=== PATIENT | female | born 1975 | race Caucasian/White ===

== ENCOUNTER 2016-10-30 13:39 | Emergency (ER) | payer MEDICAID, OTHER ==
[~2016-10-30] VITALS: Ht 162.6 cm; Wt 128.0 kg
[~2016-10-30 13:39] MED LIST: CEPH500T PO
[2016-10-30 13:42] VITALS: BP 124/80; PULSE 100; RESP 16; TEMP 98.4; O2SAT 100
[2016-10-30 13:58] VITALS: O2SAT 98
[2016-10-30] MEDS ORDERED: methylPREDNISolone SOD SUCC 125 MG/2 ML VIAL IVP ONE (14:00)
[2016-10-30] MEDS ORDERED: RESP: LIDOCAINE HCL 4% PF 5 ML NEB NEB ONE (14:00)
[2016-10-30] MEDS ORDERED: SODIUM CHLORIDE 0.9% FLUSH 10 ML FLUSH IVF PRN (14:00)
--- NOTE | 2016-10-30 14:03 | PD ---
HPI Chief Complaint: Cold / Flu Symptoms Time Seen by Provider: 13:47 Travel History International Travel<30 days: No Contact w/Intl Traveler<30days: No Traveled to known affect area: No History of Present Illness HPI The patient is a 41-year-old female who presents to the emergency department for shortness of breath. The patient notes a 2 to three-day history of cough and cold symptoms with some bilateral ear pain and some congestion. However, the last 2 days she complains of increasing shortness of breath, pressure over the anterior aspect the chest, and pain located over the midthoracic region in the back bilaterally. The patient does note a dry nonproductive cough, is unsure if she is had any fever. The patient does have a history of bronchitis, does have a history of tobacco use, last smoked a cigarette one hour prior to arrival. The patient denies any history of recent surgery, recent hospitalizations, recent prolonged travel, or history of pulmonary embolism/DVT. The patient denies any known history of CAD or CHF. The patient's symptoms are moderate, worse when she lies supine, slightly alleviated with sitting upright and sleeping upright, with no history of similar symptoms. PFSH Past Medical History Hx Anticoagulant Therapy: Yes Arthritis: Yes Autoimmune Disease: No Cancer: No Cardiovascular Problems: No Diabetes: No Diminished Hearing: No Endocrine: Yes Gastrointestinal Disorders: Yes GERD: Yes Genitourinary: No Immune Disorder: No Implanted Vascular Access Dvce: No Musculoskeletal: Yes Neurologic: No Psychiatric: No Reproductive: No Respiratory: Yes (PNEUMONIA) Immunizations Current: Yes Thyroid Disease: Yes (slightly enlarged) ?: Not : 4 Para: 3 Miscarriage: 1 Past Surgical History Abdominal Surgery: Yes (rosemarie ) Cholecystectomy: Yes Ear Surgery: Yes (TUBES X 5) Tympanostomy Tube: Yes (X 5) Other Surgery: Yes Social History Alcohol Use: No Tobacco Use: Yes (1/2 PPD) Substance Use: No Allergies-Medications (Allergen,Severity, Reaction): Coded Allergies: Ranitidine (Verified Allergy, Severe, Hives, 10/30/16) Reported Meds & Prescriptions Reported Meds & Active Scripts Active Reported Lansoprazole 30 Mg Capdr 30 Mg PO DAILY Omeprazole 20 Mg Tab 20 Mg PO DAILY Review of Systems Except as stated in HPI: all other systems reviewed are Neg General / Constitutional: No: Fever HENT: Positive: Congestion Cardiovascular: Positive: Other, No: Chest Pain or Discomfort Respiratory: Positive: Cough, Shortness of Breath Gastrointestinal: No: Nausea, Vomiting, Abdominal Pain Musculoskeletal: No: Edema Physical Exam Narrative GENERAL: Awake, alert, pleasant 41-year-old female who appears her stated age and is in no obvious respiratory distress. SKIN: Focused skin assessment warm/dry. HEAD: Atraumatic. Normocephalic. EYES: Pupils equal and round. No scleral icterus. No injection or drainage. ENT: No nasal bleeding or discharge. Mucous membranes pink and moist. Oropharynx reveals cobblestoning but no exudate. TMs bilateral have scarring from prior tube placement but no erythema or bulging. EACs are clear. NECK: Trachea midline. No JVD. CARDIOVASCULAR: Regular rate and rhythm. No murmur appreciated. Heart rate in the 90s. RESPIRATORY: No accessory muscle use. Slightly diminished in the bases. GASTROINTESTINAL: Abdomen soft, non-tender, nondistended. Obese. MUSCULOSKELETAL: No obvious deformities. No clubbing. No cyanosis. No edema. NEUROLOGICAL: Awake and alert. No obvious cranial nerve deficits. Motor grossly within normal limits. Normal speech. PSYCHIATRIC: Appropriate mood and affect; insight and judgment normal. Data Data Last Documented VS Vital Signs Date Time Temp Pulse Resp B/P Pulse Ox O2 Delivery O2 Flow Rate FiO2 10/30/16 14:09 98 Room Air 10/30/16 13:42 98.4 100 16 124/80 Orders Complete Blood Count With Diff (10/30/16 13:55) Comprehensive Metabolic Panel (10/30/16 13:55) B-Type Natriuretic Peptide (10/30/16 13:55) D-Dimer (10/30/16 13:55) Act Partial Throm Time (Ptt) (10/30/16 13:55) Prothrombin Time / Inr (Pt) (10/30/16 13:55) Magnesium (Mg) (10/30/16 13:55) Ckmb (Isoenzyme) Profile (10/30/16 13:55) Troponin I (10/30/16 13:55) Iv Access Insert/Monitor (10/30/16 13:55) Electrocardiogram (10/30/16 13:55) Ecg Monitoring (10/30/16 13:55) Oximetry (10/30/16 13:55) Oxygen Administration (10/30/16 13:55) Chest, Single Ap (10/30/16 13:55) Sodium Chloride 0.9% Flush (Ns Flush) (10/30/16 14:00) Methylprednisolone So Succ Inj (Solumedr (10/30/16 14:00) Albuterol-Ipratropium Neb (Duoneb Neb) (10/30/16 14:00) Lidocaine Pf 4% Neb (Lidocaine Pf 4% Neb (10/30/16 14:00) Ct Pulmonary Angiogram (10/30/16 ) Iohexol 350 Inj (Omnipaque 350 Inj) (10/30/16 16:12) Labs Laboratory Tests Test 10/30/16 14:30 White Blood Count 9.1 TH/MM3 Red Blood Count 4.47 MIL/MM3 Hemoglobin 13.9 GM/DL Hematocrit 41.0 % Mean Corpuscular Volume 91.9 FL Mean Corpuscular Hemoglobin 31.2 PG Mean Corpuscular Hemoglobin 34.0 % Concent Red Cell Distribution Width 12.9 % Platelet Count 331 TH/MM3 Mean Platelet Volume 6.8 FL Neutrophils (%) (Auto) 55.0 % Lymphocytes (%) (Auto) 36.1 % Monocytes (%) (Auto) 6.0 % Eosinophils (%) (Auto) 2.0 % Basophils (%) (Auto) 0.9 % Neutrophils # (Auto) 5.0 TH/MM3 Lymphocytes # (Auto) 3.3 TH/MM3 Monocytes # (Auto) 0.5 TH/MM3 Eosinophils # (Auto) 0.2 TH/MM3 Basophils # (Auto) 0.1 TH/MM3 CBC Comment DIFF FINAL Differential Comment Prothrombin Time 10.5 SEC Prothromb Time International 1.0 RATIO Ratio Activated Partial 27.0 SEC Thromboplast Time D-Dimer Quantitative (PE/DVT) 0.69 MG/L FEU Sodium Level 143 MEQ/L Potassium Level 3.9 MEQ/L Chloride Level 107 MEQ/L Carbon Dioxide Level 24.3 MEQ/L Anion Gap 12 MEQ/L Blood Urea Nitrogen 10 MG/DL Creatinine 0.82 MG/DL Estimat Glomerular Filtration 76 ML/MIN Rate Random Glucose 119 MG/DL Calcium Level 8.6 MG/DL Magnesium Level 2.0 MG/DL Total Bilirubin 0.2 MG/DL Aspartate Amino Transf 13 U/L (AST/SGOT) Alanine Aminotransferase 27 U/L (ALT/SGPT) Alkaline Phosphatase 72 U/L Total Creatine Kinase 30 U/L Troponin I LESS THAN 0.02 NG/ML B-Type Natriuretic Peptide 35 PG/ML Total Protein 6.8 GM/DL Albumin 3.5 GM/DL MDM Medical Decision Making Medical Screen Exam Complete: Yes Emergency Medical Condition: Yes Medical Record Reviewed: Yes Interpretation(s) EKG reveals normal sinus rhythm with a rate 82. Poor R-wave progression. No ischemic changes or ectopy noted. Last Impressions Chest X-Ray 10/30/16 0995 Signed Impressions: Service Date/Time: Sunday, October 30, 2016 14:16 - CONCLUSION: No acute cardiopulmonary disease. Gloria Edge MD Laboratory Tests Test 10/30/16 14:30 White Blood Count 9.1 TH/MM3 Red Blood Count 4.47 MIL/MM3 Hemoglobin 13.9 GM/DL Hematocrit 41.0 % Mean Corpuscular Volume 91.9 FL Mean Corpuscular Hemoglobin 31.2 PG Mean Corpuscular Hemoglobin 34.0 % Concent Red Cell Distribution Width 12.9 % Platelet Count 331 TH/MM3 Mean Platelet Volume 6.8 FL Neutrophils (%) (Auto) 55.0 % Lymphocytes (%) (Auto) 36.1 % Monocytes (%) (Auto) 6.0 % Eosinophils (%) (Auto) 2.0 % Basophils (%) (Auto) 0.9 % Neutrophils # (Auto) 5.0 TH/MM3 Lymphocytes # (Auto) 3.3 TH/MM3 Monocytes # (Auto) 0.5 TH/MM3 Eosinophils # (Auto) 0.2 TH/MM3 Basophils # (Auto) 0.1 TH/MM3 CBC Comment DIFF FINAL Differential Comment Prothrombin Time 10.5 SEC Prothromb Time International 1.0 RATIO Ratio Activated Partial 27.0 SEC Thromboplast Time D-Dimer Quantitative (PE/DVT) 0.69 MG/L FEU Sodium Level 143 MEQ/L Potassium Level 3.9 MEQ/L Chloride Level 107 MEQ/L Carbon Dioxide Level 24.3 MEQ/L Anion Gap 12 MEQ/L Blood Urea Nitrogen 10 MG/DL Creatinine 0.82 MG/DL Estimat Glomerular Filtration 76 ML/MIN Rate Random Glucose 119 MG/DL Calcium Level 8.6 MG/DL Magnesium Level 2.0 MG/DL Total Bilirubin 0.2 MG/DL Aspartate Amino Transf 13 U/L (AST/SGOT) Alanine Aminotransferase 27 U/L (ALT/SGPT) Alkaline Phosphatase 72 U/L Total Creatine Kinase 30 U/L Troponin I LESS THAN 0.02 NG/ML B-Type Natriuretic Peptide 35 PG/ML Total Protein 6.8 GM/DL Albumin 3.5 GM/DL Differential Diagnosis Differential diagnosis includes bronchitis, URI, pneumonia, congestive heart failure, cardiomyopathy, pleural effusion, pulmonary embolism. Narrative Course IV was established, labs are drawn and sent, and the patient was placed on cardiac telemetry monitoring and continuous pulse oximetry monitoring. EKG was ordered and interpreted. D-dimer was sent to lab. Chest x-ray was obtained. The patient was administered Solu-Medrol, duo nebs 3, and respiratory lidocaine. Chest x-ray was unremarkable. Troponin and BNP are unremarkable. However, d-dimer was positive, therefore, CT pulmonary angiogram was ordered. CT pulmonary angiogram was negative. The patient was reevaluated, her symptoms didn't improve after breathing treatments. The patient will be discharged home on prednisone, albuterol inhaler, Zithromax. She is advised to follow-up with her primary physician. Return if symptoms worsen or progress. Procedures Procedure Narrative Nursing staff was unable to establish IV access. Therefore, I placed a 20-gauge , 1.88 inch ultrasound-guided IV in the right upper extremity using a linear probe. Blood was able to be drawn from the IV without difficulty and the IV flowed easily. There is no obvious contraindications. The patient tolerated the procedure without difficulty. Diagnosis Primary Impression: Dyspnea Qualified Code: R06.00 - Dyspnea, unspecified type Additional Impression: Bronchitis Patient Instructions: General Instructions Additional Instructions: Medications as directed. Follow-up with your primary physician. Return if symptoms worsen or progress. Med/Other Pt SpecificInfo: Prescription(s) given Scripts Albuterol 18 GM Inh (Ventolin Hfa 18 GM Inh)90 Mcg/Act Aer2 Puff INH Q4H PRN ( SHORTNESS OF BREATH) #1 INHALER Ref 0 Prov:Geronimo Christie MD 10/30/16 Azithromycin (Zithromax Z-John)250 Mg Melr231 Mg PO DIRECTED #1 DSPK Ref 0 500 MG (2 tabs) day 1, then 1 tab days 2-5. Prov:Geronimo Christie MD 10/30/16 Prednisone (Deltasone)20 Mg Tab40 Mg PO DAILY 4 Days Ref 0 Prov:Geronimo Christie MD 10/30/16 Disposition: 01 DISCHARGE HOME Condition: Stable Geronimo Christie MD Oct 30, 2016 14:03
[2016-10-30] MEDS: RESP: ALBUTEROL 2.5 MG/IPRATROPIUM 0.5 MG NEB (SCH) INH (14:05)
[2016-10-30] MEDS ORDERED: OMEP20TA PO (14:12)
[2016-10-30] MEDS ORDERED: LANS30CA PO (14:12)
[2016-10-30 14:45] LABS: BASOPHIL # 0.1 TH/MM3 (0-0.2); BASOPHIL % 0.9 % (0.0-2.0); EOSINOPHIL # 0.2 TH/MM3 (0-0.4); HEMO FLAGS DIFF FINAL; LYMPH % 36.1 % (9.0-44.0); LYMPHOCYTE # 3.3 TH/MM3 (1.0-4.8); MEAN CELL VOLUME 91.9 FL (80.0-100.0); MEAN CORPUSCULAR HEMOGLOBIN 31.2 PG (27.0-34.0); PLATELET COUNT 331 TH/MM3 (150-450); RED BLOOD COUNT 4.47 MIL/MM3 (4.00-5.30); RED CELL DISTRIBUTION WIDTH 12.9 % (11.6-17.2); WHITE BLOOD COUNT 9.1 TH/MM3 (4.0-11.0)
--- NOTE | 2016-10-30 14:50 | RADHPO ---
EXAM DATE/TIME: 10/30/2016 14:16 [facility] COMPARISON: CHEST SINGLE AP, June 07, 2015, 23:49. INDICATIONS : Short of breath. MEDICAL HISTORY : None. SURGICAL HISTORY : None. ENCOUNTER: Initial ACUITY: 1 day PAIN SCORE: 7/10 LOCATION: Bilateral chest FINDINGS: The lungs are clear without infiltrate, nodule, or mass. There is no appreciable pleural effusion fo r technique. Heart and mediastinum are unremarkable. CONCLUSION: No acute cardiopulmonary disease. Gloria Edge MD on October 30, 2016 at 14:48 Board Certified Radiologist. This report was verified electronically.
[2016-10-30 14:53] LABS: CHLORIDE 107 MEQ/L (98-107); POTASSIUM 3.9 MEQ/L (3.5-5.1); SODIUM (NA) 143 MEQ/L (136-145)
[2016-10-30 14:56] LABS: ANION GAP 12 MEQ/L (5-15); BICARBONATE 24.3 MEQ/L (21.0-32.0)
[2016-10-30 14:57] LABS: BLOOD UREA NITROGEN 10 MG/DL (7-18)
[2016-10-30 15:00] LABS: ALT (GPT) 27 U/L (10-53); AST (GOT) 13 U/L (15-37); GLOMERULAR FILTRATION RATE 76 ML/MIN (>89)
[2016-10-30 15:01] LABS: TOTAL BILIRUBIN ADULT 0.2 MG/DL (0.2-1.0)
[2016-10-30 15:02] LABS: ALKALINE PHOSPHATASE 72 U/L (45-117)
[2016-10-30 15:06] LABS: PROTHROMBIN TIME - PATIENT 10.5 SEC (9.8-11.6)
[2016-10-30 15:19] LABS: CREATINE KINASE 30 U/L (26-192)
[2016-10-30] MEDS ORDERED: IOHEXOL 350 MG/ML 10 ML VIAL (for RAD DIAG) IV ONE (16:12)
--- NOTE | 2016-10-30 16:23 | RADHPO ---
EXAM DATE/TIME: 10/30/2016 15:58 [facility] COMPARISON: No previous studies available for comparison. INDICATIONS : Short of breath with pleuritic chest pain. IV CONTRAST: 70 cc Omnipaque 350 (iohexol) IV RADIATION DOSE: 21.62 CTDIvol (mGy) MEDICAL HISTORY : Gastroesophageal reflux disease. Anticoagulant therapy. SURGICAL HISTORY : Cholecystectomy. ENCOUNTER: Initial ACUITY: 2 days PAIN SCALE: 3/10 LOCATION: chest TECHNIQUE: Volumetric scanning of the chest was performed using a pulmonary embolism protocol MIP images were re constructed. Using automated exposure control and adjustment of the mA and/or kV according to patien t size, radiation dose was kept as low as reasonably achievable to obtain optimal diagnostic quality images. FINDINGS: There is linear scarring in the lingula. No consolidation. No pleural or pericardial effusion. No hil ar, mediastinal or axillary adenopathy. No filling defects to suggest pulmonary embolic disease. No acute findings in the upper abdomen. Chol ecystectomy. CONCLUSION: 1. Negative for pulmonary embolus. No acute findings. Vinnie Love MD on October 30, 2016 at 16:17 Board Certified Radiologist. This report was verified electronically.
[2016-10-30] MEDS ORDERED: PRED-503 PO (16:29)
[2016-10-30] MEDS ORDERED: VENTAER INH (16:29)
[2016-10-30] MEDS ORDERED: ZITHTAB PO (16:29)
[2016-10-30 16:47] VITALS: BP 143/82; PULSE 84; RESP 18; O2SAT 100
--- NOTE | 2016-10-31 11:48 | EKG ---
Date Performed: 10/30/2016 Time Performed: 14:34:10 PTAGE: 41 years EKG: Sinus rhythm Poor R wave progression - probable normal variant Borderline ECG PREVIOUS TRACING : 06/08/2015 03.25 Compared to prior tracing no significant change DOCTOR: Reginald Palacios Interpretating Date/Time 10/31/2016 11:46:28
== END 2016-10-30 16:54 | disposition home or self-care (01) ==
LOC: PHED 13:39
DX: R06.00 Dyspnea, unspecified (principal); J40 Bronchitis, not specified as acute or chronic; R94.31 Abnormal electrocardiogram [ECG] [EKG]; F17.210 Nicotine dependence, cigarettes, uncomplicated; K21.9 Gastro-esophageal reflux disease without esophagitis; E07.9 Disorder of thyroid, unspecified; Z79.01 Long term (current) use of anticoagulants
CPT/HCPCS: 71010; 71275; 80053; 82550; 83735; 83880; 84484; 85025; 85379; 85610; 85730; 93005; 94640; 94664; 96374; 99285; J2930; Q9967

== ENCOUNTER 2017-01-13 13:57 | Emergency (ER) | payer MEDICAID ==
[~2017-01-13] VITALS: Ht 162.6 cm; Wt 130.6 kg
[~2017-01-13 13:57] MED LIST changes: -CEPH500T PO; +LANS30CA PO; +OMEP20TA PO; +PRED-503 PO; +VENTAER INH; +ZITHTAB PO
[2017-01-13 14:02] VITALS: BP 141/83; PULSE 86; RESP 16; TEMP 98.1; O2SAT 98
[2017-01-13] MEDS ORDERED: SODIUM CHLOR 0.9% 1000 ML INJ 1,000 ML IV SCH (14:12)
[2017-01-13] MEDS ORDERED: SODIUM CHLORIDE 0.9% FLUSH 10 ML FLUSH IV FLUSH PRN (14:15)
[2017-01-13] MEDS ORDERED: ONDANSETRON HCL 4 MG/2 ML VIAL IVP ONE (14:15)
[2017-01-13] MEDS ORDERED: MORPHINE SULFATE 4 MG/ML INJ IV PUSH ONE (14:15)
--- NOTE | 2017-01-13 14:21 | PD ---
HPI Chief Complaint: Abdominal Pain Time Seen by Provider: 14:05 Travel History International Travel<30 days: No Contact w/Intl Traveler<30days: No Traveled to known affect area: No History of Present Illness HPI The patient is a 41-year-old female who presents to the emergency department for abdominal pain with nausea. The patient states her abdominal pain has been present for 4 days, constant, located in the left mid abdomen to left lower quadrant, nonradiating, associated with nausea without any vomiting, and mild constipation with diarrhea. She denies any fever, has had some intermittent chills and sweats. She also complains of a mild headache secondary to her persistent abdominal pain. She does note a previous history of cholecystectomy, denies any history of previous diverticulitis. Her last menstrual cycle was 2 weeks ago, she denies . She denies any vaginal discharge, dysuria, frequency, urgency, or hematuria. Symptoms are moderate, there are no current alleviating or exacerbating factors. PFSH Past Medical History Hx Anticoagulant Therapy: Yes Arthritis: Yes Autoimmune Disease: No Cancer: No Cardiovascular Problems: No Diabetes: No Diminished Hearing: No Endocrine: Yes Gastrointestinal Disorders: Yes GERD: Yes Genitourinary: No Herniated Disk: Yes Immune Disorder: No Implanted Vascular Access Dvce: No Medical other: Yes ([place]) Musculoskeletal: Yes (BACK PAIN) Neurologic: No Psychiatric: No Reproductive: No Respiratory: Yes (PNEUMONIA) Immunizations Current: Yes Thyroid Disease: Yes Influenza Vaccination: No ?: Not LMP: 01/01/17 : 4 Para: 3 Miscarriage: 1 Past Surgical History Abdominal Surgery: Yes (rosemarie ) Cholecystectomy: Yes Ear Surgery: Yes (TUBES X 5) Tympanostomy Tube: Yes (X 5) Other Surgery: Yes Social History Alcohol Use: No Tobacco Use: Yes (1 PPD) Substance Use: No Allergies-Medications (Allergen,Severity, Reaction): Coded Allergies: Ranitidine (Verified Allergy, Severe, Hives, 01/13/17) Reported Meds & Prescriptions Reported Meds & Active Scripts Active Reported Omeprazole 20 Mg Tab 20 Mg PO DAILY Review of Systems Except as stated in HPI: all other systems reviewed are Neg General / Constitutional: Positive: Chills, No: Fever Cardiovascular: No: Chest Pain or Discomfort Respiratory: No: Shortness of Breath Gastrointestinal: Positive: Nausea, Diarrhea, Abdominal Pain, Constipation, No : Vomiting Genitourinary: No: Urgency, Frequency, Dysuria, Discharge Physical Exam Narrative GENERAL: Awake, alert, very pleasant 41-year-old female who appears her stated age and is in no acute respiratory distress. SKIN: Focused skin assessment warm/dry. A few petechiae noted on the left hand. HEAD: Atraumatic. Normocephalic. EYES: No injection or drainage. ENT: No nasal bleeding or discharge. Mucous membranes pink and moist. NECK: Trachea midline. No JVD. CARDIOVASCULAR: Regular rate and rhythm. No murmur appreciated. RESPIRATORY: No accessory muscle use. Clear to auscultation. Breath sounds equal bilaterally. GASTROINTESTINAL: Abdomen soft, obese, mild tenderness in the left mid abdomen and left lower quadrant. No guarding or rigidity. MUSCULOSKELETAL: No obvious deformities. No clubbing. No cyanosis. No edema. NEUROLOGICAL: Awake and alert. No obvious cranial nerve deficits. Motor grossly within normal limits. Normal speech. PSYCHIATRIC: Appropriate mood and affect; insight and judgment normal. Data Data Last Documented VS Vital Signs Date Time Temp Pulse Resp B/P Pulse Ox O2 Delivery O2 Flow Rate FiO2 01/13/17 15:10 16 01/13/17 14:47 99 Room Air 01/13/17 14:02 98.1 86 141/83 Orders Complete Blood Count With Diff (01/13/17 14:12) Comprehensive Metabolic Panel (01/13/17 14:12) Lipase (01/13/17 14:12) Urinalysis - C+S If Indicated (01/13/17 14:12) Ct Abd/Pel W/O Iv Contrast (01/13/17 14:12) Iv Access Insert/Monitor (01/13/17 14:12) Ecg Monitoring (01/13/17 14:12) Oximetry (01/13/17 14:12) Ondansetron Inj (Zofran Inj) (01/13/17 14:15) Sodium Chlor 0.9% 1000 Ml Inj (Ns 1000 M (01/13/17 14:12) Sodium Chloride 0.9% Flush (Ns Flush) (01/13/17 14:15) Ed Urine Pregnancytest Poc (01/13/17 14:12) Morphine Inj (Morphine Inj) (01/13/17 14:45) Urine Culture (01/13/17 14:45) Labs Laboratory Tests Test 01/13/17 14:45 White Blood Count 9.3 TH/MM3 Red Blood Count 4.55 MIL/MM3 Hemoglobin 14.1 GM/DL Hematocrit 41.3 % Mean Corpuscular Volume 90.7 FL Mean Corpuscular Hemoglobin 31.0 PG Mean Corpuscular Hemoglobin 34.2 % Concent Red Cell Distribution Width 12.5 % Platelet Count 309 TH/MM3 Mean Platelet Volume 6.5 FL Neutrophils (%) (Auto) 60.0 % Lymphocytes (%) (Auto) 29.2 % Monocytes (%) (Auto) 6.4 % Eosinophils (%) (Auto) 2.3 % Basophils (%) (Auto) 2.1 % Neutrophils # (Auto) 5.6 TH/MM3 Lymphocytes # (Auto) 2.7 TH/MM3 Monocytes # (Auto) 0.6 TH/MM3 Eosinophils # (Auto) 0.2 TH/MM3 Basophils # (Auto) 0.2 TH/MM3 CBC Comment DIFF FINAL Differential Comment Urine Collection Type CLEAN CATCH Urine Color YELLOW Urine Turbidity CLEAR Urine pH 6.0 Urine Specific [place] 1.007 Urine Protein NEG mg/dL Urine Glucose (UA) NEG mg/dL Urine Ketones NEG mg/dL Urine Occult Blood SMALL Urine Nitrite NEG Urine Bilirubin NEG Urine Leukocyte Esterase NEG Urine RBC 0-3 /hpf Urine WBC 6-8 /hpf Urine Squamous Epithelial 6-8 /hpf Cells Urine Bacteria MOD /hpf Microscopic Urinalysis Comment CULTURE INDICATED Sodium Level 141 MEQ/L Potassium Level 3.8 MEQ/L Chloride Level 107 MEQ/L Carbon Dioxide Level 25.0 MEQ/L Anion Gap 9 MEQ/L Blood Urea Nitrogen 11 MG/DL Creatinine 0.67 MG/DL Estimat Glomerular Filtration 97 ML/MIN Rate Random Glucose 107 MG/DL Calcium Level 8.9 MG/DL Total Bilirubin 0.2 MG/DL Aspartate Amino Transf 18 U/L (AST/SGOT) Alanine Aminotransferase 39 U/L (ALT/SGPT) Alkaline Phosphatase 73 U/L Total Protein 6.9 GM/DL Albumin 3.4 GM/DL Lipase 615 U/L [facility] Medical Decision Making Medical Screen Exam Complete: Yes Emergency Medical Condition: Yes Medical Record Reviewed: Yes Interpretation(s) Laboratory Tests Test 01/13/17 14:45 White Blood Count 9.3 TH/MM3 Red Blood Count 4.55 MIL/MM3 Hemoglobin 14.1 GM/DL Hematocrit 41.3 % Mean Corpuscular Volume 90.7 FL Mean Corpuscular Hemoglobin 31.0 PG Mean Corpuscular Hemoglobin 34.2 % Concent Red Cell Distribution Width 12.5 % Platelet Count 309 TH/MM3 Mean Platelet Volume 6.5 FL Neutrophils (%) (Auto) 60.0 % Lymphocytes (%) (Auto) 29.2 % Monocytes (%) (Auto) 6.4 % Eosinophils (%) (Auto) 2.3 % Basophils (%) (Auto) 2.1 % Neutrophils # (Auto) 5.6 TH/MM3 Lymphocytes # (Auto) 2.7 TH/MM3 Monocytes # (Auto) 0.6 TH/MM3 Eosinophils # (Auto) 0.2 TH/MM3 Basophils # (Auto) 0.2 TH/MM3 CBC Comment DIFF FINAL Differential Comment Urine Collection Type CLEAN CATCH Urine Color YELLOW Urine Turbidity CLEAR Urine pH 6.0 Urine Specific [place] 1.007 Urine Protein NEG mg/dL Urine Glucose (UA) NEG mg/dL Urine Ketones NEG mg/dL Urine Occult Blood SMALL Urine Nitrite NEG Urine Bilirubin NEG Urine Leukocyte Esterase NEG Urine RBC 0-3 /hpf Urine WBC 6-8 /hpf Urine Squamous Epithelial 6-8 /hpf Cells Urine Bacteria MOD /hpf Microscopic Urinalysis Comment CULTURE INDICATED Sodium Level 141 MEQ/L Potassium Level 3.8 MEQ/L Chloride Level 107 MEQ/L Carbon Dioxide Level 25.0 MEQ/L Anion Gap 9 MEQ/L Blood Urea Nitrogen 11 MG/DL Creatinine 0.67 MG/DL Estimat Glomerular Filtration 97 ML/MIN Rate Random Glucose 107 MG/DL Calcium Level 8.9 MG/DL Total Bilirubin 0.2 MG/DL Aspartate Amino Transf 18 U/L (AST/SGOT) Alanine Aminotransferase 39 U/L (ALT/SGPT) Alkaline Phosphatase 73 U/L Total Protein 6.9 GM/DL Albumin 3.4 GM/DL Lipase 615 U/L Differential Diagnosis Differential diagnosis includes diverticulitis, partial small bowel obstruction , nephrolithiasis, hydronephrosis, pyelonephritis, gastroenteritis, colitis. Narrative Course IV was established, labs are drawn and sent, and the patient was placed on cardiac telemetry monitoring and continuous pulse oximetry monitoring. The patient was administered morphine, Zofran, and IV fluids. UA was obtained and bedside UA was performed. CT of the abdomen and pelvis was ordered. UA test was negative. UA does reveal 6-8 WBCs, culture was sent to lab. The patient's lipase is mildly elevated at 615, LFTs are unremarkable. CT the abdomen and pelvis is negative. The patient will be treated for WBCs and her UA with lower abdominal pain, we'll treat with Bactrim. I will also place the patient on some antiemetics and pain medications for possible mild pancreatitis. The patient is stable for outpatient follow-up with her primary physician. Diagnosis Primary Impression: Abdominal pain Qualified Code: R10.30 - Lower abdominal pain Additional Impressions: UTI (urinary tract infection) Qualified Code: N39.0 - Urinary tract infection without hematuria, site unspecified Pancreatitis Qualified Code: K85.90 - Acute pancreatitis, unspecified complication status, unspecified pancreatitis type Patient Instructions: General Instructions Additional Instructions: Please provide the patient a copy of lab results and CT results at discharge. Medications as directed. Follow-up with your primary physician. Avoid fried or fatty foods for the next several days. Clear liquid diet and advance as tolerated. Return if symptoms worsen or progress. Med/Other Pt SpecificInfo: Prescription(s) given Scripts Hydrocodone-Acetaminophen ([place])5-325 mg Tab1 Tab PO Q6H PRN (PAIN) #15 TAB Ref 0 Prov:Geronimo Christie MD 01/13/17 Ondansetron Odt (Zofran Odt)4 Mg Tab4 Mg SL Q6HR PRN (Nausea/Vomiting) #10 TAB Ref 0 Prov:Geronimo Christie MD 01/13/17 Sulfamethoxazole-Trimethoprim (Bactrim DS)800-160 Mg Tab1 Tab PO BID #14 TAB Ref 0 Prov:Geronimo Christie MD 01/13/17 Disposition: 01 DISCHARGE HOME Condition: Stable Geronimo Christie MD Jan 13, 2017 14:21
[2017-01-13] MEDS ORDERED: MORPHINE SULFATE 8 MG/ML INJ IV PUSH ONE (14:45)
[2017-01-13 14:47] VITALS: RESP 16; O2SAT 99
[2017-01-13 14:50] LABS: AUTOMATED NEUTROPHIL # 5.6 TH/MM3 (1.8-7.7); BASOPHIL # 0.2 TH/MM3 (0-0.2); BASOPHIL % 2.1 % (0.0-2.0); EOSINOPHIL # 0.2 TH/MM3 (0-0.4); EOSINOPHIL % 2.3 % (0.0-4.0); HEMATOCRIT 41.3 % (35.0-46.0); HEMO FLAGS DIFF FINAL; LYMPH % 29.2 % (9.0-44.0); LYMPHOCYTE # 2.7 TH/MM3 (1.0-4.8); MEAN CELL VOLUME 90.7 FL (80.0-100.0); MEAN CORPUSCULAR HGB CONC 34.2 % (32.0-36.0); MONO % 6.4 % (0.0-8.0); PLATELET COUNT 309 TH/MM3 (150-450); RED BLOOD COUNT 4.55 MIL/MM3 (4.00-5.30); RED CELL DISTRIBUTION WIDTH 12.5 % (11.6-17.2); WHITE BLOOD COUNT 9.3 TH/MM3 (4.0-11.0)
[2017-01-13 14:52] LABS: BLOOD, URINE SMALL (NEG); GLUCOSE,URINE NEG (NEG); KETONE, URINE NEG (NEG); NITRITE,URINE NEG (NEG)
[2017-01-13 14:53] LABS: METHOD OF COLLECTION CLEAN CATCH; URINE COLOR YELLOW (YELLW/STRAW)
[2017-01-13 15:03] LABS: BACTERIA, URINE MOD /hpf; COMMENT (UR) CULTURE INDICATED; CULTURE IF INDICATED CULTURE INDICATED; RBC, URINE 0-3 /hpf (0-3)
[2017-01-13 15:05] LABS: CHLORIDE 107 MEQ/L (98-107); POTASSIUM 3.8 MEQ/L (3.5-5.1); SODIUM (NA) 141 MEQ/L (136-145)
[2017-01-13 15:08] LABS: ANION GAP 9 MEQ/L (5-15)
[2017-01-13 15:09] LABS: BLOOD UREA NITROGEN 11 MG/DL (7-18)
[2017-01-13 15:10] VITALS: RESP 16
[2017-01-13 15:11] LABS: ALT (GPT) 39 U/L (10-53); AST (GOT) 18 U/L (15-37)
[2017-01-13 15:12] LABS: GLOMERULAR FILTRATION RATE 97 ML/MIN (>89)
[2017-01-13 15:13] LABS: TOTAL BILIRUBIN ADULT 0.2 MG/DL (0.2-1.0)
[2017-01-13 15:14] LABS: ALKALINE PHOSPHATASE 73 U/L (45-117)
--- NOTE | 2017-01-13 15:34 | RADRPT ---
EXAM DATE/TIME: 01/13/2017 14:50 [facility] COMPARISON: No previous studies available for comparison. INDICATIONS : Abdominal pain. Evaluate for diverticulitis. ORAL CONTRAST: No oral contrast ingested. RADIATION DOSE: 22.34 CTDIvol (mGy) MEDICAL HISTORY : Gastroesophageal reflux disease. SURGICAL HISTORY : Cholecystectomy. ENCOUNTER: Initial ACUITY: 1 day PAIN SCALE: 3/10 LOCATION: Bilateral lower quadrant TECHNIQUE: Volumetric scanning of the abdomen and pelvis was performed. Using automated exposure control and ad justment of the mA and/or kV according to patient size, radiation dose was kept as low as reasonably achievable to obtain optimal diagnostic quality images. DICOM format image data is available electro nically for review and comparison. FINDINGS: The lung base are clear. There is no pericardial effusion. Moderate fatty replacement is present in the liver. The gallbladder is surgically absent. The splee n, pancreas, adrenals and kidneys are unremarkable. In the pelvis there is no intra-diverticulitis. I do not see inflammatory changes in the abdomen. I do not see an etiology of patient's abdominal pa in. Review of bone windows reveals only degenerative changes. CONCLUSION: Negative for inflammatory process.. Darrel Frances MD FACR on January 13, 2017 at 15:29 Board Certified Radiologist. This report was verified electronically.
[2017-01-13] MEDS ORDERED: BACT800T5 PO (15:45)
[2017-01-13] MEDS ORDERED: NORC5TAB PO (15:45)
[2017-01-13] MEDS ORDERED: ZOFR4TAB3 SL (15:45)
[2017-01-13 16:31] VITALS: BP 114/67
== END 2017-01-13 16:32 | disposition home or self-care (01) ==
LOC: PHED 13:57
DX: N39.0 Urinary tract infection, site not specified (principal); K85.90 Acute pancreatitis without necrosis or infection, unspecified; Z79.01 Long term (current) use of anticoagulants; M19.90 Unspecified osteoarthritis, unspecified site; K21.9 Gastro-esophageal reflux disease without esophagitis; E24.9 Cushing's syndrome, unspecified; E07.9 Disorder of thyroid, unspecified; Z90.49 Acquired absence of other specified parts of digestive tract
CPT/HCPCS: 74176; 80053; 81001; 83690; 84703; 85025; 87086; 96361; 96374; 96375; 99285; J2270; J2405; J7030

== ENCOUNTER 2017-04-30 19:42 | Emergency (ER) | payer MEDICAID ==
[~2017-04-30] VITALS: Ht 162.6 cm; Wt 134.5 kg
[~2017-04-30 19:42] MED LIST changes: +BACT800T5 PO; -LANS30CA PO; +NORC5TAB PO; -PRED-503 PO; -VENTAER INH; -ZITHTAB PO; +ZOFR4TAB3 SL
[2017-04-30 19:45] VITALS: BP 123/83; PULSE 96; RESP 20; TEMP 98.6; O2SAT 99
--- NOTE | 2017-04-30 20:36 | PD ---
HPI Chief Complaint: Respiratory Symptoms Time Seen by Provider: 20:21 Travel History International Travel<30 days: No Contact w/Intl Traveler<30days: No Traveled to known affect area: No History of Present Illness HPI The patient is a 41-year-old female that has multiple complaints. She has a cough which is nonproductive for 3 days. She states she feels retrosternal congestion. She also has chronic back pain which is a Workmen's Comp. case. She also has reflux esophagitis. She does not have a primary care physician and did have a sign writer hand for GERD but no longer has a sign writer hand. She smokes three fourths pack is a. She also complains of myalgias with the cough in her shoulders and back. She denies any fever or shortness of breath. She states that there is no possibility of , she is not sexually active. She denies any dysuria, frequency or urgency. She has a fairly frequent visitor to the emergency department. She has had a cholecystectomy in 2001. On her last visit, 4 months ago, she had an elevated lipase. She states she does not drink alcohol. PFSH Past Medical History Hx Anticoagulant Therapy: Yes Arthritis: Yes Autoimmune Disease: No Cancer: No Cardiovascular Problems: No Diabetes: No Diminished Hearing: No Endocrine: Yes Gastrointestinal Disorders: Yes GERD: Yes Genitourinary: No Herniated Disk: Yes Immune Disorder: No Implanted Vascular Access Dvce: No Musculoskeletal: Yes (BACK PAIN) Neurologic: No Psychiatric: No Reproductive: No Respiratory: Yes (PNEUMONIA) Immunizations Current: Yes Thyroid Disease: Yes ?: Not LMP: 10-7-17 : 4 Para: 3 Miscarriage: 1 Past Surgical History Abdominal Surgery: Yes (rosemarie ) Cholecystectomy: Yes Ear Surgery: Yes (TUBES X 5) Tympanostomy Tube: Yes (X 5) Other Surgery: Yes Social History Alcohol Use: No Tobacco Use: Yes (1 PPD) Substance Use: No Allergies-Medications (Allergen,Severity, Reaction): Coded Allergies: ranitidine (Unverified Allergy, Severe, Hives, 04/30/17) Reported Meds & Prescriptions Reported Meds & Active Scripts Active Flexeril (Cyclobenzaprine HCl) 10 Mg Tab 10 Mg PO TID [place] (Hydrocodone-Acetaminophen) 5-325 mg Tab 1 Tab PO Q6H PRN Omeprazole 20 Mg Tab 20 Mg PO BID NEB Reported Omeprazole 20 Mg Tab 20 Mg PO DAILY Review of Systems Except as stated in HPI: all other systems reviewed are Neg Physical Exam Narrative GENERAL: The patient is alert, oriented 3, obese, in no respiratory distress. Her vital signs are normal and oximetry is 99% on room air. SKIN: Focused skin assessment warm/dry. No skin rash is noted. HEAD: Atraumatic. Normocephalic. EYES: Pupils equal and round. No scleral icterus. No injection or drainage. ENT: No nasal bleeding or discharge. Mucous membranes pink and moist. NECK: Trachea midline. No JVD. CARDIOVASCULAR: Regular rate and rhythm. No murmur appreciated. RESPIRATORY: No accessory muscle use. Clear to auscultation. Breath sounds equal bilaterally. GASTROINTESTINAL: Abdomen soft, non-tender, nondistended. Hepatic and splenic margins not palpable. No guarding or rebound is present. MUSCULOSKELETAL: No obvious deformities. No clubbing. No cyanosis. No edema. NEUROLOGICAL: Awake and alert. No obvious cranial nerve deficits. Motor grossly within normal limits. Normal speech. PSYCHIATRIC: Appropriate mood and affect; insight and judgment normal. Data Data Last Documented VS Vital Signs Date Time Temp Pulse Resp B/P (MAP) Pulse Ox O2 Delivery O2 Flow Rate FiO2 04/30/17 20:14 93 16 99 04/30/17 19:45 98.6 123/83 (96) Orders Orders Chest, Pa & Lat (04/30/17 20:36) Beta Hcg (Quant/Titer) (04/30/17 20:45) Complete Blood Count With Diff (04/30/17 20:45) Comprehensive Metabolic Panel (04/30/17 20:45) Lipase (04/30/17 20:45) Urinalysis - C+S If Indicated (04/30/17 20:45) Iv Access Insert/Monitor (04/30/17 20:45) Ecg Monitoring (04/30/17 20:45) Oximetry (04/30/17 20:45) Sodium Chloride 0.9% Flush (Ns Flush) (04/30/17 20:45) Sodium Chlor 0.9% 1000 Ml Inj (Ns 1000 M (04/30/17 22:30) Ketorolac Inj (Toradol Inj) (04/30/17 23:00) Orphenadrine Inj (Norflex Inj) (04/30/17 23:00) Labs Laboratory Tests Test 04/30/17 21:00 04/30/17 21:40 Urine Color YELLOW Urine Turbidity SLIGHT Urine pH 6.0 Urine Specific [place] 1.006 Urine Protein NEG mg/dL Urine Glucose (UA) NEG mg/dL Urine Ketones NEG mg/dL Urine Occult Blood TRACE Urine Nitrite NEG Urine Bilirubin NEG Urine Leukocyte Esterase NEG Urine RBC 4-9 /hpf Urine Squamous Epithelial Cells 0-5 /hpf Urine Bacteria FEW /hpf Microscopic Urinalysis Comment CULT NOT INDICATED Blood Urea Nitrogen 10 MG/DL Creatinine 0.73 MG/DL Random Glucose 83 MG/DL Total Protein 7.3 GM/DL Albumin 3.6 GM/DL Calcium Level 8.6 MG/DL Alkaline Phosphatase 71 U/L Aspartate Amino Transf (AST/SGOT) 26 U/L Alanine Aminotransferase (ALT/SGPT) 44 U/L Total Bilirubin 0.3 MG/DL Sodium Level 138 MEQ/L Potassium Level 4.2 MEQ/L Chloride Level 104 MEQ/L Carbon Dioxide Level 24.9 MEQ/L Anion Gap 9 MEQ/L Estimat Glomerular Filtration Rate 87 ML/MIN Lipase 469 U/L Human Chorionic Gonadotropin, Quant LESS THAN 1 MIU/ML White Blood Count 9.3 TH/MM3 Red Blood Count 4.46 MIL/MM3 Hemoglobin 13.9 GM/DL Hematocrit 41.5 % Mean Corpuscular Volume 93.0 FL Mean Corpuscular Hemoglobin 31.3 PG Mean Corpuscular Hemoglobin Concent 33.6 % Red Cell Distribution Width 13.5 % Platelet Count 320 TH/MM3 Mean Platelet Volume 6.8 FL Neutrophils (%) (Auto) 54.5 % Lymphocytes (%) (Auto) 36.6 % Monocytes (%) (Auto) 5.5 % Eosinophils (%) (Auto) 2.3 % Basophils (%) (Auto) 1.1 % Neutrophils # (Auto) 5.1 TH/MM3 Lymphocytes # (Auto) 3.4 TH/MM3 Monocytes # (Auto) 0.5 TH/MM3 Eosinophils # (Auto) 0.2 TH/MM3 Basophils # (Auto) 0.1 TH/MM3 CBC Comment DIFF FINAL Differential Comment MDM Medical Decision Making Medical Screen Exam Complete: Yes Emergency Medical Condition: Yes Medical Record Reviewed: Yes Interpretation(s) The chest x-ray is normal and the blood work is unremarkable except for a lipase slightly over 400. Differential Diagnosis Viral upper respiratory infection, bronchitis, pneumonia, GERD, chronic back pain, pancreatitis, Impressions: Viral upper respiratory infection, resolving viral pancreatitis Narrative Course The lipase is 469. This is down from the 615 lipase back in December of this year. The patient has some abdominal pain which radiates to the back and this conceivably could be either back pain-musculoskeletal pain or pancreatic pain. It could also be a combination of both. Nevertheless, the patient is not vomiting. I did call [facility] and they told me that she did not fit the criteria for 23 hour observation. She does not have intractable vomiting and her abdominal pain did not require IV narcotic pain medications. Impression: Viral syndrome, resolving viral pancreatitis Diagnosis Primary Impression: Viral syndrome Additional Impression: Pancreatitis, chronic Additional Instructions: In the first 48 hours try to avoid any fatty foods. As we discussed, clear liquids first to hydrate herself and then you can move into crackers, fruit juices, Jell-O, applesauce and foods that contain no fat. Follow-up with your primary care physician and try to get a gastroenterology appointment. Do not drink alcohol or drive on the [place] or Flexeril. Med/Other Pt SpecificInfo: Prescription(s) given Scripts Cyclobenzaprine (Flexeril) 10 Mg Tab 10 MG PO TID for Muscle Spasm, #60 TAB 0 Refills Prov: Vince Melton MD 04/30/17 Hydrocodone-Acetaminophen ([place]) 5-325 mg Tab 1 TAB PO Q6H Y for PAIN, #15 TAB 0 Refills Prov: Vince Melton MD 04/30/17 Omeprazole (Omeprazole) 20 Mg Tab 20 MG PO BID NEB, #40 TAB 0 Refills Prov: Vince Melton MD 04/30/17 Vince Melton MD Apr 30, 2017 20:35
[2017-04-30] MEDS ORDERED: SODIUM CHLORIDE 0.9% FLUSH 10 ML FLUSH IV FLUSH PRN (20:45)
[2017-04-30 21:24] LABS: CHLORIDE 104 MEQ/L (98-107); POTASSIUM 4.2 MEQ/L (3.5-5.1); SODIUM (NA) 138 MEQ/L (136-145)
[2017-04-30 21:29] LABS: ANION GAP 9 MEQ/L (5-15); BICARBONATE 24.9 MEQ/L (21.0-32.0); BLOOD UREA NITROGEN 10 MG/DL (7-18)
[2017-04-30 21:31] LABS: AST (GOT) 26 U/L (15-37)
[2017-04-30 21:32] LABS: ALT (GPT) 44 U/L (10-53); GLOMERULAR FILTRATION RATE 87 ML/MIN (>89)
[2017-04-30 21:33] LABS: TOTAL BILIRUBIN ADULT 0.3 MG/DL (0.2-1.0)
[2017-04-30 21:34] LABS: ALKALINE PHOSPHATASE 71 U/L (45-117); BETA HCG QUANT LESS THAN 1 MIU/ML (0-5)
--- NOTE | 2017-04-30 21:39 | RADRPT ---
EXAM DATE/TIME: 04/30/2017 21:10 [facility] COMPARISON: CHEST PA & LAT, March 05, 2015, 17:28. INDICATIONS : Cough. Congestion. Back pain. MEDICAL HISTORY : None. SURGICAL HISTORY : None. ENCOUNTER: Initial ACUITY: 1 day PAIN SCORE: 6/10 LOCATION: Bilateral chest FINDINGS: PA and lateral views of the chest demonstrate linear airspace disease in both bases characteristic of atelectasis. There is no significant consolidation. There are no suspicious nodular densities or eff usions. The cardiomediastinal contours are unremarkable. Osseous structures are intact. CONCLUSION: Bilateral atelectasis. No other evidence of acute process. Usama Green MD on April 30, 2017 at 21:36 Board Certified Radiologist. This report was verified electronically.
[2017-04-30 21:52] LABS: AUTOMATED NEUTROPHIL # 5.1 TH/MM3 (1.8-7.7); BASOPHIL # 0.1 TH/MM3 (0-0.2); BASOPHIL % 1.1 % (0.0-2.0); EOSINOPHIL # 0.2 TH/MM3 (0-0.4); EOSINOPHIL % 2.3 % (0.0-4.0); HEMATOCRIT 41.5 % (35.0-46.0); LYMPH % 36.6 % (9.0-44.0); LYMPHOCYTE # 3.4 TH/MM3 (1.0-4.8); MEAN CORPUSCULAR HEMOGLOBIN 31.3 PG (27.0-34.0); MEAN CORPUSCULAR HGB CONC 33.6 % (32.0-36.0); MONO % 5.5 % (0.0-8.0); NEUT % 54.5 % (16.0-70.0); PLATELET COUNT 320 TH/MM3 (150-450); RED BLOOD COUNT 4.46 MIL/MM3 (4.00-5.30); RED CELL DISTRIBUTION WIDTH 13.5 % (11.6-17.2); WHITE BLOOD COUNT 9.3 TH/MM3 (4.0-11.0)
[2017-04-30 21:56] LABS: HEMO FLAGS DIFF FINAL
[2017-04-30 22:30] VITALS: BP 156/88; PULSE 89; RESP 16; O2SAT 98
[2017-04-30] MEDS ORDERED: SODIUM CHLOR 0.9% 1000 ML INJ 1,000 ML IV SCH (22:30)
[2017-04-30 22:49] LABS: BLOOD, URINE TRACE (NEG); GLUCOSE,URINE NEG (NEG); KETONE, URINE NEG (NEG); NITRITE,URINE NEG (NEG)
[2017-04-30] MEDS ORDERED: OMEP20TA PO (22:49)
[2017-04-30] MEDS ORDERED: CYCL1TAB29 PO (22:49)
[2017-04-30] MEDS ORDERED: NORC5TAB PO (22:49)
[2017-04-30] MEDS ORDERED: KETOROLAC TROMETHAMINE 60 MG/2 ML (IM) VIAL IVP ONE (23:00)
[2017-04-30] MEDS ORDERED: ORPHENADRINE INJ 60 MG/2 ML AMP IM ONE (23:00)
[2017-04-30 23:02] LABS: URINE COLOR YELLOW (YELLW/STRAW)
[2017-04-30 23:05] LABS: BACTERIA, URINE FEW /hpf; COMMENT (UR) CULT NOT INDICATED; CULTURE IF INDICATED CULT NOT INDICATED; SQUAMOUS EPITHELIAL CELL URINE 0-5 /hpf (0-5)
[2017-05-01 00:10] VITALS: BP 162/78
== END 2017-05-01 00:16 | disposition home or self-care (01) ==
LOC: PHED 19:42
DX: R05 Cough (principal); K86.1 Other chronic pancreatitis; K21.0 Gastro-esophageal reflux disease with esophagitis; E07.9 Disorder of thyroid, unspecified; F17.200 Nicotine dependence, unspecified, uncomplicated; Z79.899 Other long term (current) drug therapy
CPT/HCPCS: 71020; 80053; 81001; 83690; 84702; 85025; 96361; 96372; 96374; 99284; J1885; J2360; J7030

== ENCOUNTER 2017-12-13 20:09 | Emergency (ER) | payer MEDICAID ==
[~2017-12-13] VITALS: Ht 162.6 cm; Wt 134.6 kg
[~2017-12-13 20:09] MED LIST changes: -BACT800T5 PO; +CYCL10TA PO; -OMEP20TA PO; +OMEP20TA93 PO; -ZOFR4TAB3 SL
[2017-12-13 20:39] VITALS: BP 118/59; PULSE 79; RESP 18; TEMP 98.5; O2SAT 100
[2017-12-13 21:17] VITALS: BP 110/74; PULSE 81; RESP 18; O2SAT 98
[2017-12-13] MEDS ORDERED: SODIUM CHLOR 0.9% 1000 ML INJ 1,000 ML IV ONE (21:22)
[2017-12-13] MEDS ORDERED: PROCHLORPERAZINE INJ 10 MG/2 ML VIAL IV PUSH ONE (21:30)
[2017-12-13] MEDS ORDERED: diphenhydrAMINE HCL 50 MG/ML VIAL IV PUSH ONE (21:30)
[2017-12-13] MEDS ORDERED: SODIUM CHLORIDE 0.9% FLUSH 10 ML FLUSH IVF PRN (21:30)
--- NOTE | 2017-12-13 21:38 | PD ---
HPI . Dizziness Chief Complaint: Dizziness Time Seen by Provider: 21:22 Travel History International Travel<30 days: No Contact w/Intl Traveler<30days: No Traveled to known affect area: No History of Present Illness HPI This patient presents with acute onset of dizziness and vomiting. It started about 5 PM. She states that the lightheadedness started first followed almost immediately by the vomiting. The patient reports a history of significant reflux disease. She states she has been drinking a lot of coffee today. She believes that the coffee has exacerbated the reflux causing the vomiting. However, the lightheadedness was felt to be unusual. Her daughter was very concerned and brought her to the emergency department for further evaluation and treatment. She states that her symptoms are spontaneously improving. They were initially moderate and are now mild. PFSH Past Medical History Hx Anticoagulant Therapy: Yes Arthritis: Yes Autoimmune Disease: No Cancer: No Cardiovascular Problems: No Diabetes: No Diminished Hearing: No Endocrine: Yes Gastrointestinal Disorders: Yes GERD: Yes Genitourinary: No Herniated Disk: Yes Immune Disorder: No Implanted Vascular Access Dvce: No Musculoskeletal: Yes (BACK PAIN) Neurologic: No Psychiatric: No Reproductive: No Respiratory: Yes (PNEUMONIA) Immunizations Current: Yes Thyroid Disease: Yes Tetanus Vaccination: Unknown Influenza Vaccination: No ?: Unknown LMP: 11/23/17 : 4 Para: 3 Miscarriage: 1 Past Surgical History Abdominal Surgery: Yes (rosemarie ) Cholecystectomy: Yes Ear Surgery: Yes (TUBES X 5) Tympanostomy Tube: Yes (X 5) Other Surgery: Yes Social History Alcohol Use: No Tobacco Use: Yes (1 PPD) Substance Use: No Allergies-Medications (Allergen,Severity, Reaction): Coded Allergies: ranitidine (Unverified Allergy, Severe, Hives, 12/13/17) Reported Meds & Prescriptions Reported Meds & Active Scripts Active Zofran Odt (Ondansetron Odt) 4 Mg Tab 4 Mg SL Q6HR PRN Pseudoephedrine ER 12 HR (Pseudoephedrine HCl) 120 Mg Tab 120 Mg PO BID Flonase Nasal [place] (Fluticasone Nasal [place]) 50 Mcg/Act [place] 50 Mcg EACH NARE BID Reported Omeprazole 20 Mg Tab 20 Mg PO DAILY Review of Systems Except as stated in HPI: all other systems reviewed are Neg General / Constitutional: No: Fever, Chills Eyes: No: Diploplia, Blurred Vision HENT: Positive: Lightheadedness, Earache, No: Headaches Cardiovascular: No: Chest Pain or Discomfort Respiratory: No: Shortness of Breath Gastrointestinal: Positive: Nausea, Vomiting Neurologic: Positive: Weakness, No: Focal Abnormalities Physical Exam Narrative GENERAL: Awake and alert. She is sitting up on the bed with an emesis bag between her legs. SKIN: warm/dry. HEAD: Normocephalic. Atraumatic. EYES: Pupils equal and round. Extraocular movements are intact. No scleral icterus. No injection or drainage. ENT: No nasal bleeding or discharge. Mucous membranes pink and moist. Both of her TMs are retracted with no light reflex. NECK: Trachea midline. Full range of motion without pain.. CARDIOVASCULAR: Regular rate and rhythm. Heart sounds are normal. RESPIRATORY: No accessory muscle use. Clear to auscultation. Breath sounds equal bilaterally. MUSCULOSKELETAL: No obvious deformities. NEUROLOGICAL: Awake and alert. No obvious cranial nerve deficits. Motor grossly within normal limits. Normal speech. [id number] exam is intact. PSYCHIATRIC: Appropriate mood and affect; insight and judgment normal. Data Data Last Documented VS Vital Signs Date Time Temp Pulse Resp B/P (MAP) Pulse Ox O2 Delivery O2 Flow Rate FiO2 12/13/17 21:19 98 Room Air 12/13/17 21:17 81 18 110/74 (86) 12/13/17 20:39 98.5 Orders Orders Electrocardiogram (12/13/17 21:22) Basic Metabolic Panel (Bmp) (12/13/17 21:22) Complete Blood Count With Diff (12/13/17 21:22) Troponin I (12/13/17 21:22) Ct Brain W/O Iv Contrast(Rout) (12/13/17 21:22) Iv Access Insert/Monitor (12/13/17 21:22) Sodium Chloride 0.9% Flush (Ns Flush) (12/13/17 21:30) Sodium Chlor 0.9% 1000 Ml Inj (Ns 1000 M (12/13/17 21:22) Diphenhydramine Inj (Benadryl Inj) (12/13/17 21:30) Prochlorperazine Inj (Compazine Inj) (12/13/17 21:30) Ed Discharge Order (12/13/17 22:47) Labs Laboratory Tests Test 12/13/17 22:15 White Blood Count 10.8 TH/MM3 Red Blood Count 4.73 MIL/MM3 Hemoglobin 14.4 GM/DL Hematocrit 43.3 % Mean Corpuscular Volume 91.5 FL Mean Corpuscular Hemoglobin 30.4 PG Mean Corpuscular Hemoglobin Concent 33.3 % Red Cell Distribution Width 12.4 % Platelet Count 279 TH/MM3 Mean Platelet Volume 6.7 FL Neutrophils (%) (Auto) 75.1 % Lymphocytes (%) (Auto) 17.8 % Monocytes (%) (Auto) 4.7 % Eosinophils (%) (Auto) 0.2 % Basophils (%) (Auto) 2.2 % Neutrophils # (Auto) 8.2 TH/MM3 Lymphocytes # (Auto) 1.9 TH/MM3 Monocytes # (Auto) 0.5 TH/MM3 Eosinophils # (Auto) 0.0 TH/MM3 Basophils # (Auto) 0.2 TH/MM3 CBC Comment DIFF FINAL Differential Comment Blood Urea Nitrogen 8 MG/DL Creatinine 0.79 MG/DL Random Glucose 111 MG/DL Calcium Level 8.8 MG/DL Sodium Level 136 MEQ/L Potassium Level 4.0 MEQ/L Chloride Level 104 MEQ/L Carbon Dioxide Level 23.7 MEQ/L Anion Gap 8 MEQ/L Estimat Glomerular Filtration Rate 79 ML/MIN Troponin I LESS THAN 0.02 NG/ML MDM Medical Decision Making Medical Screen Exam Complete: Yes Emergency Medical Condition: Yes Interpretation(s) EKG shows a normal sinus rhythm. Poor R-wave progression. No acute ischemic changes. No change from previous. Differential Diagnosis Differential diagnosis of dizziness includes but is not limited to vertigo, dehydration, acute blood loss, sepsis, ACS Narrative Course This patient presents with the acute onset of lightheadedness and vomiting. Her physical exam is reassuring. Neurological exam is nonfocal. Her symptoms may very well be related to both eustachian tube dysfunction and exacerbation of her reflux by caffeine. A syncope/dizzy workup is in process. Her symptoms will be treated with a fluid bolus along with IV Compazine and Benadryl. Last Impressions Head CT 12/13/172121 Signed Impressions: CONCLUSION: 1. No acute intracranial abnormality. CBC & BMP Diagram 12/13/17 22:15 Calcium Level 8.8 trop < 0.02 The patient is feeling much better. She will be discharged home. I will give her prescriptions for Flonase and pseudoephedrine for the eustachian tube dysfunction. Zofran as needed for nausea. Diagnosis Primary Impression: Lightheadedness Additional Impressions: Eustachian tube dysfunction Qualified Codes: H69.83 - Other specified disorders of eustachian tube, bilateral Vomiting Qualified Codes: R11.2 - Nausea with vomiting, unspecified Patient Instructions: Acute Nausea and Vomiting (DC), Eustachian Tube Dysfunction (GEN), General Instructions, Lightheadedness (ED) Med/Other Pt SpecificInfo: Prescription(s) given Scripts Ondansetron Odt (Zofran Odt) 4 Mg Tab 4 MG SL Q6HR Y for Nausea/Vomiting, #10 TAB 0 Refills Prov: Anna Marie Ayers MD 12/13/17 Pseudoephedrine ER 12 HR (Pseudoephedrine ER 12 HR) 120 Mg Tab 120 MG PO BID for ear congestion, #60 TAB 0 Refills Prov: Anna Marie Ayers MD 12/13/17 Fluticasone Nasal [place] (Flonase Nasal [place]) 50 Mcg/Act [place] 50 MCG EACH NARE BID for Allergies, #1 BOTTLE 0 Refills Prov: Anna Marie Ayers MD 12/13/17 Disposition: 01 DISCHARGE HOME Condition: Stable Anna Marie Ayers MD December 13, 2017 21:38
--- NOTE | 2017-12-13 21:38 | RADRPT ---
EXAM DATE: 12/13/2017 9:35 PM EDT AGE/SEX: 42 years / Female INDICATIONS: Dizziness. CLINICAL DATA: This is the patient's initial encounter. Patient reports that signs and symptoms have been present for 1 day and indicates a pain score of 0/10. MEDICAL/SURGICAL HISTORY: None. None. RADIATION DOSE: 57.65 CTDI (mGy) COMPARISON: No prior [facility] exams available for comparison. TECHNIQUE: CT of the head without contrast. Using automated exposure control and adjustment of the mA and/or kV according to patient size, radiation dose was kept as low as reasonably achievable to ob tain optimal diagnostic quality images. FINDINGS: Cerebrum: The ventricles are normal for age. No evidence of midline shift, mass lesion, hemorrhage o r acute infarction. No extraaxial fluid collections are seen. Posterior Fossa: The cerebellum and brainstem are intact. The 4th ventricle is midline. The cerebe llopontine angle is unremarkable. Extracranial: The visualized portion of the orbits is intact. Skull: The calvaria is intact. No evidence of skull fracture. CONCLUSION: 1. No acute intracranial abnormality. Electronically signed by: Nilton Rogers MD 12/13/2017 9:37 PM EDT
[2017-12-13 22:21] LABS: AUTOMATED NEUTROPHIL # 8.2 TH/MM3 (1.8-7.7); BASOPHIL # 0.2 TH/MM3 (0-0.2); BASOPHIL % 2.2 % (0.0-2.0); EOSINOPHIL % 0.2 % (0.0-4.0); HEMATOCRIT 43.3 % (35.0-46.0); HEMOGLOBIN 14.4 GM/DL (11.6-15.3); LYMPH % 17.8 % (9.0-44.0); LYMPHOCYTE # 1.9 TH/MM3 (1.0-4.8); MEAN CELL VOLUME 91.5 FL (80.0-100.0); MEAN CORPUSCULAR HEMOGLOBIN 30.4 PG (27.0-34.0); MEAN CORPUSCULAR HGB CONC 33.3 % (32.0-36.0); MEAN PLATELET VOLUME 6.7 FL (7.0-11.0); MONO % 4.7 % (0.0-8.0); MONOCYTE # 0.5 TH/MM3 (0-0.9); NEUT % 75.1 % (16.0-70.0); PLATELET COUNT 279 TH/MM3 (150-450); RED BLOOD COUNT 4.73 MIL/MM3 (4.00-5.30); RED CELL DISTRIBUTION WIDTH 12.4 % (11.6-17.2); WHITE BLOOD COUNT 10.8 TH/MM3 (4.0-11.0)
[2017-12-13 22:33] LABS: CHLORIDE 104 MEQ/L (98-107); SODIUM (NA) 136 MEQ/L (136-145)
[2017-12-13 22:36] LABS: BICARBONATE 23.7 MEQ/L (21.0-32.0); BLOOD UREA NITROGEN 8 MG/DL (7-18); CALCIUM 8.8 MG/DL (8.5-10.1); GLUCOSE,RANDOM 111 MG/DL (74-106)
[2017-12-13 22:39] LABS: CREATININE 0.79 MG/DL (0.50-1.00); GLOMERULAR FILTRATION RATE 79 ML/MIN (>89)
[2017-12-13 22:43] LABS: TROPONIN I LESS THAN 0.02 NG/ML (0.02-0.05)
[2017-12-13] MEDS ORDERED: ZOFR4TAB3 SL (22:46)
[2017-12-13] MEDS ORDERED: FLUT1SPR5 EACH NARE (22:46)
[2017-12-13] MEDS ORDERED: PSEU1TAB17 PO (22:46)
[2017-12-13 23:17] VITALS: BP 122/62; PULSE 74; RESP 18; O2SAT 99
--- NOTE | 2017-12-14 15:12 | EKG ---
Date Performed: 12/13/2017 Time Performed: 22:02:12 PTAGE: 42 years EKG: Sinus rhythm LOW QRS VOLTAGE IN PRECORDIAL LEADS BORDERLINE ECG Since the PREVIOUS TRACING , no significant change noted PREVIOUS TRACIN10/30/2016 14.34 DOCTOR: Ilya Bundy Interpretating Date/Time 12/14/2017 15:12:14
== END 2017-12-13 23:19 | disposition home or self-care (01) ==
LOC: PHED 20:09
DX: R42 Dizziness and giddiness (principal); H69.83 Other specified disorders of Eustachian tube, bilateral; R11.2 Nausea with vomiting, unspecified; M19.90 Unspecified osteoarthritis, unspecified site; K21.9 Gastro-esophageal reflux disease without esophagitis; E07.9 Disorder of thyroid, unspecified; F17.200 Nicotine dependence, unspecified, uncomplicated; Z79.899 Other long term (current) drug therapy; Z88.8 Allergy status to other drugs, medicaments and biological substances
CPT/HCPCS: 70450; 80048; 84484; 85025; 93005; 96361; 96374; 96375; 99285; J0780; J1200; J7030